=== PATIENT | female | born 1975 | race Caucasian/White ===

== ENCOUNTER 2017-06-03 15:15 | Outpatient (CLI) | payer OTHER ==
--- NOTE | 2017-06-03 17:37 | Diagnostic Imaging Report ---
AICHA SHOEMAKER [facility] [address] [facility] [address] [id number] Report Submission Date: Jun 03, 2017 3:46:36 PM CDT Patient Study Name: LIONEL SIDHU Date: Jun 03, 2017 3:31:25 PM CDT Modality Type: CR Gender: F Description: LOWER EXTREMITY : 71 Institution: [facility] Physician: AICHA SHOEMAKER Examination: Plain film knee History: Knee discomfort Findings: 2 views of the knee demonstrates normal cortical margins. No fracture. No dislocation. No joint effusion. No soft tissue irregularity. Impression: No acute osseous abnormality. Electronically signed on Jun 03, 2017 3:46:36 PM CDT by: Troy JACOB
== END 2017-06-03 15:16 ==
LOC: RAD 15:15
PROVIDERS: ATTEND Physician Assistant
DX: M25.561 Pain in right knee (principal)
CPT/HCPCS: 73560